=== PATIENT | female | born 1950 | race Caucasian/White ===

== ENCOUNTER → 2017-10-17 11:51 | Outpatient (CLI) | payer MEDICARE, SELFPAY ==
[2017-10-17 12:49] LABS: AST(SGOT) 30 U/L (15-37); Alanine Aminotransfer ALT/SGPT 36 U/L (13-56); Albumin, Serum 4.1 g/dL (3.2-5.0); Alkaline Phosphatase 72 U/L (45-117); Anion Gap 7 (5-15); BUN 18 mg/dL (7-18); Calcium,Total 9.3 mg/dL (8.5-10.1); Chloride 106 mmol/L (98-107); Cholesterol 155 mg/dL (200); Creatinine, Serum 0.78 mg/dL (0.55-1.02); EST Glomerular Filtration Rate 78 mL/min (>60); Est Glom Filt Rate - Afr Amer 94 mL/min (>60); Globulin 4.1 g/dL (2.2-4.2); Glucose 90 mg/dL (74-106); High Density Lipoprotein 36 mg/dL; Potassium 3.8 mmol/L (3.5-5.1); Protein, Total 8.2 g/dL (6.4-8.2); Sodium Level 138 mmol/L (136-145); Thyroid Stim Hormone (TSH) 7.66 uIU/mL (0.358-3.74); Triglycerides 121 mg/dL; Very Low Density Lipoprotein 24 mg/dL (5-40)
[2017-10-17 12:54] LABS: BNP,B-Type NATRIURETIC PEPTIDE 9.6 pg/mL (0-100)
== END ==
PROVIDERS: Visit Provider Family Medicine
DX: E03.9 Hypothyroidism, unspecified (principal); R06.02 Shortness of breath; E78.5 Hyperlipidemia, unspecified; R31.29 Other microscopic hematuria
CPT/HCPCS: 80053; 80061; 83880; 84443

== ENCOUNTER → 2017-10-18 10:59 | Outpatient (CLI) | payer MEDICARE, SELFPAY ==
[2017-10-18 11:01] LABS: Mucous, Urine 0 SEEN /hpf (<or=2+); Squamous Epithelial Cells - UA 0 SEEN /hpf (5-10); White Blood Cells 0 SEEN /hpf (0-5)
[2017-10-18 11:06] LABS: Color, Urine Yellow (Yellow); Glucose, Dipstick Normal (Normal); Ketone-Dipstick Negative (Negative); Leukocyte Esterase-Dipstick Negative /ul (Negative); Nitrite-Dipstick Negative (Negative); Occult Blood-Urine 50 /ul (Negative); Protein-Dipstick Negative (Negative); Specific Gravity, Urine 1.025 (1.002-1.030); Urine Bilirubin Dipstick Negative (Negative); Urine Clarity Cloudy (Clear); Urine Urobilinogen Normal (Normal)
[2017-10-18 11:12] LABS: Amorphous Sediment 2+; Bacteria 2+ /hpf (None Seen); Red Blood Cells-Urine 0-5 SEEN /hpf (0-5)
== END ==
PROVIDERS: Family Provider Family Medicine; PCP Family Medicine; Visit Provider Family Medicine
DX: R31.29 Other microscopic hematuria (principal)
CPT/HCPCS: 81001

== ENCOUNTER 2018-01-07 10:49 | Emergency (ER) | payer MEDICARE, SELFPAY ==
[2018-01-07 10:50] VITALS: BP 151/93; PULSE 81; RESP 16; TEMP 36.5; O2SAT 98; BMI 25.5
--- NOTE | 2018-01-07 10:55 | EKG12_ITS ---
Test Reason : GI BLEED Blood Pressure : / mmHG Vent. Rate : 069 BPM Atrial Rate : 069 BPM P-R Int : 140 ms QRS Dur : 072 ms QT Int : 418 ms P-R-T Axes : 042 -15 045 degrees QTc Int : 447 ms Normal sinus rhythm with sinus arrhythmia Normal ECG Confirmed by JACOBY HARTLEY, LUIS ([id number]), field map editor TAYLOR MANSFIELD ([id number]) on 01/09/2018 1:32:03 PM Referred By: Mor Medrano Confirmed By:LUIS DOZIER MD
--- NOTE | 2018-01-07 11:19 | ED.DCSUM_ITS ---
- ER Visit Summary Date of Service: 01/07/18 Chief Complaint: [] Diarrhea bloody stool this morning History of Present Illness: The patient is a 67 F [] reports that basically she came home from [place] she had a URI she has been taking allergy medicine that is improved last night she noticed copious diarrhea but seemed dark and then this morning it seemed bloody she had abdominal cramps she went to her doctor's office and she came in for evaluation, she has had no vomiting no fever no exposure to tainted food she frequently travels to [place] she stayed with family she was not exposed in the could have made her L she has not been in antibiotics, she has had colonoscopies recently that showed nothing acute she has no history of GI bleeding she does complain of crampy pain to the left lower quadrant she has no history of diverticulitis Physical Examination: [] Is are within normal range she is resting comforting the bed complaining of pain to the left lower abdomen head neck chest unremarkable the abdomen is soft there is a vague pain to the left lower abdomen rectal exam shows runny stool in the vault is red, upper lower extremities and the rest of her exams unremarkable she is hemodynamically stable Test Results: [] Emergency Department Course and Treatment: [] CT labs IV fluids stool cultures The patient received IV fluids she has had no further diarrheal bowel movements while she has been in the emergency department she is feeling fine, her CT shows nothing acute her labs are generally unremarkable stool culture C. difficile were sent, I discussed inpatient versus outpatient management with her she states she feels fine she wants to go home I spoke with Dr. Salter her attending physician given that she was recently in [place] he asked that she be started on Cipro they will check the stool culture she will follow-up with office return for any change in symptoms and again the patient declines admission prefers outpatient management but will return if symptoms change Treatment Plan: [] Disposition: [] Home stable Impression: [] Bloody diarrhea This note was generated with [employer] dictation software. It may contain incorrect words, spelling, and punctuation that were not noted in review of the chart prior to signing ED Disposition - Plan for ED Patient: Chief Complaint: GI Bleed Referrals: Dillon Salter MD [Primary Care Provider] -
--- NOTE | 2018-01-07 11:19 | CT_ITS ---
STUDY: CT ABDOMEN AND PELVIS WITHOUT CONTRAST REASON FOR EXAM: Female, 67 years old. Abdominal pain and cramping. RADIATION DOSAGE (If Supplied By Facility): CTDIvol = ( 6.11 ) mGy, DLP = ( 308.50 ) mGycm TECHNIQUE: Transaxial images were obtained from the dome of the diaphragm to the symphysis pubis without oral contrast, and without intravenous contrast. Sagittal and coronal images were reconstructed. Individualized dose optimization techniques were used for this CT. COMPARISON: None. FINDINGS: The visualized lung bases are unremarkable. The visualized portions of the heart are within normal limits. There is diffuse fatty infiltration of the liver. No focal lesion is definitely identified. Normal gallbladder and extrahepatic biliary system. Normal spleen. Normal pancreas. Normal bilateral adrenal glands. Normal right kidney. There is prominence of the right renal pelvis which could be due to parapelvic cysts unchanged since the prior examination. There is no demonstrated ureteral stones. Normal visualized stomach. There are nonspecific fluid-filled small bowel loops. There are artifacts in the upper pelvic lesion adjacent to distal small bowel loop. There is no evidence of small bowel obstruction. There is fecal retention. There is mild diverticulosis of the sigmoid colon but there is no evidence of acute diverticulitis. The appendix is visualized and appears normal. There is diffuse atherosclerotic calcification of the abdominal aorta, without a demonstrated aneurysm. Normal inferior vena cava. Normal retroperitoneum. Normal urinary bladder. Normal abdominal wall. There is no demonstrated acute osseous changes. CT/Abdomen/Pelvis without Cont IMPRESSION: Fatty infiltration of the liver. No demonstrated acute process. Electronically Signed: Jesse Rodriguez MD at 12:13 EDT Tel , Service support ,
[2018-01-07] MEDS: 0.9% Normal Saline 1,000 ML 999 ML IV (11:26)
[2018-01-07] MEDS: 0.9% Normal Saline 1,000 ML 125 ML IV (11:26)
[2018-01-07 11:27] VITALS: BP 153/68; PULSE 70; RESP 18; O2SAT 96
[2018-01-07 11:35] LABS: Absolute Lymphocyte Count 2.24 X10^3/ul (0.83-4.51); Absolute Neutrophil Count 8.5 X10^3/uL (2.0-7.7); Basophil# 0.02 X10^3/uL; Basophil% 0.2 % (0-1); Eosinophil# 0.26 X10^3/uL; Eosinophils% 2.2 % (0-5); Hematocrit 45.2 % (37-47); Lymphocyte # 2.24 X10^3/ul (4.0); Lymphocyte % 18.9 % (19-41); Mean Corp Hgb Conc 33.2 g/gl (32-36); Mean Corpuscular Hgb 29.6 pg (27.0-32.0); Mean Corpuscular Volume 89.2 fL (81-99); Monocyte# 0.86 X10^3/uL; Monocyte% 7.3 % (0-10); Neutrophil # 8.46 X10^3/uL (2.7-7.7); Neutrophil % 71.2 % (47-70); Platelet Count 251 K/mm3 (150-450); RBC Distribution Width CV 12.1 % (11.6-14.6); RBC Distribution Width SD 38.5 fl (35.1-43.9); Red Blood Count 5.07 M/mm3 (4.2-5.4); White Blood Count 11.9 K/mm3 (4.4-11.0)
[2018-01-07 11:36] LABS: POSITIVE COUNT NO; POSITIVE DIFFERENTIAL NO; POSITIVE MORPHOLOGY NO
[2018-01-07 11:42] LABS: International Normalized Ratio 0.9; Prothrombin Time (Protime)PT. 12.5 SECONDS (11.7-14.9)
[2018-01-07 11:53] LABS: AST(SGOT) 28 U/L (15-37); Alanine Aminotransfer ALT/SGPT 38 U/L (13-56); Alkaline Phosphatase 84 U/L (45-117); Anion Gap 5 (5-15); BUN 16 mg/dL (7-18); BUN/Creat Ratio 21.8 RATIO (10-20); Bilirubin, Direct 0.11 mg/dL (0.00-0.30); Calcium,Total 9.1 mg/dL (8.5-10.1); Chloride 105 mmol/L (98-107); Creatinine, Serum 0.73 mg/dL (0.55-1.02); EST Glomerular Filtration Rate 84 mL/min (>60); Est Glom Filt Rate - Afr Amer 102 mL/min (>60); Estimated Creatinine Clearance 43.77 ml/min; Globulin 4.6 g/dL (2.2-4.2); Glucose 96 mg/dL (74-106); Lipase 91 U/L (73-393); Potassium 3.7 mmol/L (3.5-5.1); Protein, Total 8.6 g/dL (6.4-8.2); Sodium Level 139 mmol/L (136-145)
--- NOTE | 2018-01-07 12:59 | ED.DEP ---
ED Disposition - Plan for ED Patient: Chief Complaint: GI Bleed Instructions: ED Hematochezia Stable Prescriptions: Ciprofloxacin [Cipro] 500 mg PO BID #14 tab Referrals: Dillon Salter MD [Primary Care Provider] -
[2018-01-07] MEDS: Ciprofloxacin 500 MG Tablet PO (13:30)
[2018-01-07 13:31] VITALS: BP 134/84; PULSE 62; RESP 16; O2SAT 95
--- NOTE | 2018-01-07 13:35 | ED.RN ---
called lab to verify they have enough stool for specimen and they do not. will notify
== END 2018-01-07 13:41 | disposition home or self-care (01) ==
PROVIDERS: Emergency Provider Emergency Medicine; Family Provider Family Medicine; PCP Family Medicine
DX: R19.7 Diarrhea, unspecified (principal); K92.1 Melena; R10.32 Left lower quadrant pain; E78.00 Pure hypercholesterolemia, unspecified; Z79.82 Long term (current) use of aspirin; Z79.899 Other long term (current) drug therapy
CPT/HCPCS: 74176; 80048; 80076; 82274; 83690; 84484; 85025; 85610; 87506; 93005; 96360; 96361; 99284; J7030; J2405

== ENCOUNTER → 2018-09-05 15:26 | Outpatient (CLI) | payer MEDICARE, SELFPAY ==
[2018-09-05 16:40] LABS: AST(SGOT) 31 U/L (15-37); Alanine Aminotransfer ALT/SGPT 54 U/L (13-56); Alkaline Phosphatase 67 U/L (45-117); Bilirubin, Direct 0.07 mg/dL (0.00-0.30); Globulin 3.6 g/dL (2.2-4.2); Protein, Total 7.6 g/dL (6.4-8.2)
[2018-09-05 16:47] LABS: PTHIN 36.6 pg/mL (18.4-80.1)
[2018-09-07 16:08] LABS: HEPATITIS B SURFACE AG Negative (Negative); Hepatitis A IgM Antibody Negative (Negative); Hepatitis B Core AB IgM Negative (Negative)
[2018-09-08 12:30] LABS: Hep C Antibodies <0.1 s/co ratio (0.0-0.9)
== END ==
PROVIDERS: Family Provider Family Medicine; PCP Family Medicine; Referring Provider Family Medicine; Visit Provider Family Medicine
DX: E83.52 Hypercalcemia (principal); R74.8 Abnormal levels of other serum enzymes
CPT/HCPCS: 80074; 80076; 82330; 83970

== ENCOUNTER → 2019-04-13 16:08 | Outpatient (CLI) | payer MEDICARE, SELFPAY ==
--- NOTE | 2019-04-13 16:13 | VDLE_ITS ---
Reason For Study: RLE pain RIGHT LEFT GSV is normal. CFV is compressible, spontaneous, phasic, CFV is compressible, spontaneous, phasic, competent, and demonstrates normal competent and demonstrates normal augmentation. augmentation. FV is compressible, spontaneous, phasic, competent and demonstrates normal augmentation. POP V is compressible, spontaneous, phasic, competent and demonstrates normal augmentation. T/P Trunk is compressible. PTV is compressible. RT PerV is compressible. Procedure Exam performed in department. The exam was diagnostic. A preliminary report was called and/or faxed to Dr. Salter office @ 4:35 pm. Interpretation Summary There is no evidence of right lower extremity deep vein thrombosis. Right great saphenous vein appears patent and compressible segmentally. Patent and compressible left great saphenous vein Ordering Physician: Dillon Salter Referring Physician: Dillon Salter Performed By: Dede Cooper RDCS, RVT
== END ==
PROVIDERS: Family Provider Family Medicine; PCP Family Medicine; Referring Provider Family Medicine; Visit Provider Family Medicine
DX: M79.604 Pain in right leg (principal)
CPT/HCPCS: 93971

== ENCOUNTER → 2019-05-10 08:40 | Outpatient (CLI) | payer MEDICARE, SELFPAY ==
--- NOTE | 2019-05-10 10:56 | NEURO ---
NCS and/or EMG Patient Report HPI: Patient is a 68-year-old female who presented with a burning sensation and numbness in her skin and deep into muscle on her frontal lateral thigh of right leg which is been going on for a year. patient does not have any injury to her leg or low back, does not have any back pain or radiating pain down the leg and does not have a history of diabetes. Patient occasionally sleeps on the right side. Patient does not wear tight undergarments or tight belts. No history of weight gain or weight loss or fever or any other medical symptoms at this time. Physical Exam: Decreased sensation to light touch over a patch of skin in right lateral frontal thigh on the lower aspect. No any other sensory deficit in the right or left lower extremity. Tinel sign not positive at anterosuperior iliac spine and no tenderness along inguinal ligament. Findings: 1.There is a evidence of prolongation of distal latency of the right sural sensory nerve response. 2.There is also prolongation of distal latencies of the right lateral and left lateral femoral cutaneous nerve of thigh. 3.Normal nerve conduction studies of right common peroneal and right tibial nerve motor nerve conduction studies. 4. Normal needle examination of right lower extremity. Impression: 1.Findings are suggestive of the meralgia paresthetica on both side, more on the right than the left but patient is symptomatic on the right side and asymptomatic on the left side. 2. 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 Recommendation: 1. Patient recommended to avoid sleeping on the right side and avoid wearing tight undergarments and tight belts. 2. Patient may need MRI of the lumbar spine and CT scan of abdomen and pelvis if symptoms continues or get worse in the next few months.
== END ==
PROVIDERS: Family Provider Family Medicine; PCP Family Medicine; Referring Provider Family Medicine; Visit Provider Family Medicine
DX: M79.604 Pain in right leg (principal)
CPT/HCPCS: 95886; 95910

== ENCOUNTER → 2019-11-02 | Outpatient (CLI) | payer MEDICARE, SELFPAY ==
[2019-11-02 11:09] LABS: Cholesterol 147 mg/dL (200); High Density Lipoprotein 34 mg/dL; Thyroid Stim Hormone (TSH) 1.19 uIU/mL (0.358-3.74); Triglycerides 142 mg/dL; Very Low Density Lipoprotein 28 mg/dL (5-40)
== END | disposition home or self-care (01) ==
LOC: LABSPEC 10:31
PROVIDERS: PCP Family Medicine; Referring Provider Family Medicine; Visit Provider Family Medicine
DX: E03.9 Hypothyroidism, unspecified (principal)
CPT/HCPCS: 80061; 84443

== ENCOUNTER 2019-12-17 13:46 | Observation (INO) | payer MEDICARE, SELFPAY ==
[2019-12-17] VITALS (7 sets, daily range): BP systolic 119–174; BP diastolic 72–102; PULSE 57–89; RESP 15–18; TEMP 36.8; O2SAT 94–97; BMI 25.2; BMI 25.1
--- NOTE | 2019-12-17 14:15 | CT_ITS ---
STUDY: CTA HEAD AND NECK WITH CONTRAST REASON FOR EXAM: Female, 69 years old. TINGLING IN RT CHEEK-2 EPISODES RADIATION DOSAGE (If Supplied By Facility): CTDIvol = ( 26.52 ) mGy, DLP = ( 1384.40 ) mGycm TECHNIQUE: CT angiography was performed with a multi-detector CT scanner. Data acquisition was obtained from the skull base through the vertex following intravenous administration of 100 CC ISOVUE 370. MIP images were reconstructed from the axial data set. Post-processing of the angiographic images was performed, with multiplanar reformation and 3D reconstruction. Individualized dose optimization techniques were used for this CT. COMPARISON: CT of the brain June 22, 2012. FINDINGS: Normal bilateral petrous carotid arteries. Normal right cavernous carotid artery with a normal supraclinoid bifurcation. Normal left cavernous carotid artery with a normal supraclinoid bifurcation. Normal right A1 segments of the anterior cerebral artery. Normal left A1 segments of the anterior cerebral artery. Anterior communicating artery not visualized consistent with normal variant). Normal bilateral A2 segments of the anterior cerebral arteries. Normal right M1 and M2 segments of the middle cerebral arteries, with a normal M1 bifurcation. Normal left M1 and M2 segments of the middle cerebral arteries, with a normal M1 bifurcation. Posterior communicating arteries are not visualized consistent with normal variant). Normal bilateral vertebral arteries. Normal basilar artery with a normal basilar bifurcation. The visualized bilateral superior cerebellar (SCA) arteries are normal. Normal bilateral P1, P2 and visualized P3 segments of the posterior cerebral arteries. There is no demonstrated aneurysm of the [place]. There is no demonstrated abnormality of the visualized brain. AORTIC ARCH: Normal visualized aortic arch. Normal origins of the brachiocephalic, left common carotid, and left subclavian arteries. RIGHT CAROTID ARTERIES: Normal right common carotid artery (CCA). Normal right common carotid bulb. Normal origin of the right internal carotid (ICA) artery without a hemodynamically significant stenosis. Normal visualized cervical portion of the right internal carotid artery. Normal origin of the right external carotid artery (ECA). LEFT CAROTID ARTERIES: Normal left common carotid artery (CCA). Normal left common carotid bulb. Normal origin of the left internal carotid (ICA) artery without a hemodynamically significant stenosis. Normal visualized cervical portion of the left internal carotid artery. Normal origin of the left external carotid artery (ECA). VERTEBRAL ARTERIES: Left vertebral is normal in caliber. There is mild narrowing of the distal right vertebral. CT/CTA Head AND Neck W/ Contrast IMPRESSION: Normal CTA Head and neck with contrast. Electronically Signed: Kennedy Frias MD at 16:47 EDT , Service support ,
--- NOTE | 2019-12-17 14:15 | EKG12_ITS ---
Test Reason : NUMBNESS Blood Pressure : / mmHG Vent. Rate : 062 BPM Atrial Rate : 062 BPM P-R Int : 132 ms QRS Dur : 068 ms QT Int : 416 ms P-R-T Axes : 052 -15 041 degrees QTc Int : 422 ms Normal sinus rhythm Normal ECG Confirmed by JACOBY HARTLEY, LUIS ([id number]), videotape editor SKYLAR SAMPSON ([id number]) on 12/19/2019 1:14:17 PM Referred By: RHONDA Confirmed By:LUIS DOZIER MD
[2019-12-17 15:36] LABS: Absolute Lymphocyte Count 2.11 X10^3/uL (0.83-4.51); Absolute Neutrophil Count 4.3 X10^3/uL (2.0-7.7); Basophil# 0.04 X10^3/uL; Basophil% 0.5 % (0-1); Eosinophil# 0.13 X10^3/uL; Eosinophils% 1.8 % (0-5); Hematocrit 45.5 % (37-47); Hemoglobin 14.8 g/dL (12.0-15.0); Lymphocyte # 2.11 X10^3/ul (4.0); Lymphocyte % 28.6 % (19-41); Mean Corp Hgb Conc 32.5 g/dL (32-36); Mean Corpuscular Hgb 29.2 pg (27.0-32.0); Mean Corpuscular Volume 89.9 fL (81-99); Mean Platelet Vol. 12.3 fl (6.2-12.0); Monocyte# 0.77 X10^3/uL; Monocyte% 10.4 % (0-10); NRBC Flagged by Analyzer 0 % (0-5); Neutrophil % 58.3 % (47-70); Platelet Count 244 K/mm3 (150-450); RBC Distribution Width CV 11.9 % (11.6-14.6); RBC Distribution Width SD 38.7 fl (35.1-43.9); Red Blood Count 5.06 M/mm3 (4.2-5.4); White Blood Count 7.4 K/mm3 (4.4-11.0)
[2019-12-17 15:46] LABS: Anion Gap 6 (5-15); BUN 17 mg/dL (7-18); BUN/Creat Ratio 23.3 RATIO (10-20); Calcium,Total 9.5 mg/dL (8.5-10.1); Chloride 102 mmol/L (98-107); Creatinine, Serum 0.73 mg/dL (0.55-1.02); EST Glomerular Filtration Rate 84 mL/min (>60); Est Glom Filt Rate - Afr Amer 102 mL/min (>60); Estimated Creatinine Clearance 42.59 ml/min; Glucose 77 mg/dL (74-106); Potassium 3.8 mmol/L (3.5-5.1); Sodium Level 137 mmol/L (136-145)
--- NOTE | 2019-12-17 16:36 | ED.DCSUM_ITS ---
- ER Visit Summary Date of Service: 12/17/19 Chief Complaint: [Paresthesias] History of Present Illness: The patient is a 69 F [resents to the emergency department complaint of paresthesias to the right cheek that started 5 days ago initially. Patient states the symptoms lasted about 10 seconds and then re solved. Patient states that yesterday she had another episode while walking and talking to a friend developed sudden onset of paresthesias to the right side of her face that lasted about 10 seconds or so then resolved. She denies any focal weakness otherwise. She denies any speech difficulties. She denies any vision changes. She is currently symptom-free. Has history of high cholesterol and history of hypothyroidism.] Physical Examination: [HEENT-PERRLA, EOMI. Cranial nerves II through XII grossly intact. TMs clear. Mucous membranes moist. No adenopathy. Cardiovascular-regular rate and rhythm without murmur or ectopy Lungs-clear to auscultation, chest wall stable without crepitus or subcu emphysema Abdomen-normoactive bowel sounds, soft, nontender, no rebound or rigidity, no peritoneal signs. Neuro poik-[id number] and heel shaw testing within normal limits, negative Romberg, negative for drift, fundi benign Extremities-intact ?4, normal range of motion, normal pulses, atraumatic] Test Results: EKG obtained arrival shows sinus rhythm with a ventricular rate of 62 bpm with no acute segment changes. CBC with differential is normal. Chemistries unremarkable. CTA of the head and neck ordered and pending. [] Emergency Department Course and Treatment: [Patient placed on wet end operator. Patient case discussed with hospitalist who will evaluate patient for admission after CTA results returned. ] Treatment Plan: [Patient turned over to evening physician awaiting CTA results of head neck and final disposition] Disposition: [Pending] Impression: [TIA] This note was generated with H2020ation software. It may contain incorrect words, spelling, and punctuation that were not noted in review of the chart prior to signing ED Disposition - Plan for ED Patient: Referrals: Dillon Salter MD [Primary Care Provider] -
--- NOTE | 2019-12-17 17:13 | NURSING ---
[facility]
--- NOTE | 2019-12-17 17:16 | HP.PCM_ITS ---
<Zbigniew Fowler - Last Filed: 12/17/19 17:27> Problem List (1) CVA (cerebral vascular accident) Status: Acute (2) Dyslipidemia Status: Chronic (3) Hypothyroidism Status: Chronic History of Present Illness Date of Admission: 12/17/19 Chief Complaint: parasthesias The patient is a 69 year old F with pmhx of HLD and who presents to the ER with c/o parasthesias. The patient was with friends about 5 days ago and noted that she had a tingling sensation on the right side of her face inferolateral to the eye. This sensation occurred for <1 minute and went away. It came back yesterday and went away after about 10 secs. She called her PCP to get seen today who instructed her to come to the ER. Today she has had no symptoms. She had no other associated symptoms. She denies MARTIN, LH, dizziness, parasthesias elsewhere, focal weakness, ataxia, swallowing or speech difficulties. She had a CTA head / neck in the ER that was negative. EKG NSR. She has no recent infections. She has no recent med changes. She feels in her normal state of health. [] Past Medical History Past Medical History (Chronic Problems): Chronic Problems Numbness (Chronic) Hypothyroidism (Chronic) Dyslipidemia (Chronic) Atypical chest pain (Chronic) Allergies Sulfa (Sulfonamide Antibiotics) Allergy (Verified 12/17/19 13:50) Unknown Home Medications: Ambulatory Orders Medication Instructions Recorded Aspirin [Aspirin, Baby] 81 mg PO DAILY@0800 01/07/18 Atorvastatin Calcium [Lipitor] 10 mg PO QHS 01/07/18 Levothyroxine [Synthroid] 75 mcg PO DAILY 01/07/18 Surgical History: tonsillectomy Psychiatric History: No pertinent psych hx PLANNING CONSULTANT History: No pertinent PLANNING CONSULTANT history Lives: Spouse/ Significant Other Smoking Status: Never smoker Tobacco Use: Non-smoker Alcohol: Occasional Drugs: None - *Family History Maternal History Items: Unknown - adopted Paternal History Items: Unknown - adopted Review of Systems Constitutional: Denies: Chills, Fever, Weight Change HEENT: Denies: Head Aches, Sinus Congestion, Sinus Drainage Cardiovascular: Denies: Chest Pain, Palpitations Respiratory: Denies: Cough, Shortness of breath at rest, Sputum production Gastrointestinal: Denies: Abdominal Pain, Nausea, Vomiting Genitourinary: Denies: Dysuria Musculoskeletal: Denies: Joint Pain, Joint Tenderness Skin: Denies: Rash, Wounds Neurological: Reports: Tingling. Denies: Focal weakness, Numbness Psychiatric: Denies: Anxiety, Depression, Homicidal Ideations, Suicidal Ideations Hematologic/ Lymphatic: Denies: Easy Bruising, Easy Bleeding VTE Information - Inpt Only VTE Present on Admission: No VTE Mechan Device Prophylaxis: None VTE Pharm Prophylaxis ordered?: Yes Patient Problems: Active and Suspected Problems CVA (cerebral vascular accident) (Acute) - Physical Exam Vitals/I&O's: Vital Signs Temp Pulse Resp BP Pulse Ox 98.2 F 68 18 174/93 H 94 12/17/19 13:48 12/17/19 17:04 12/17/19 17:04 12/17/19 17:04 12/17/19 17:04 Oxygen Delivery Method Room Air Weight: 138 lb 3.677 oz Body Mass Index (BMI) 25.2 General: Alert, Oriented x3, Cooperative HEENT: Atraumatic, PERRLA, EOMI, Normocephalic Neck: Supple, No JVD, Negative Carotid Bruits Lungs: Clear to auscultation, Normal air movement Cardiovascular: Regular rate, No murmurs Abdomen: Bowel Sounds Present, Soft, Non Tender Extremities: No edema, Capillary Refill Less than 3 Seconds Skin: No rashes, No breakdown Musculoskeletal: No Tenderness to Palpation of Joints or Extremities Neurological: Cranial nerves II-XII grossly intact Psych/Mental Status: Normal Affect, Appropriate, Alert and oriented to time, place, person, mood and affect Laboratory Results 12/17/19 15:15: WBC 7.4, RBC 5.06, Hgb 14.8, Hct 45.5, MCV 89.9, MCH 29.2, MCHC 32.5, RDW Std Deviation 38.7, RDW Coeff of [place] 11.9, Plt Count 244, MPV 12.3 H, Immature Gran % (Auto) 0.400, Neut % (Auto) 58.3, Lymph % (Auto) 28.6, [place] % (Auto) 10.4 H, Eos % (Auto) 1.8, Baso % (Auto) 0.5, Absolute Neuts (auto) 4.3, Absolute Lymphs (auto) 2.11, Nucleated RBC % 0 12/17/19 15:15: Sodium 137, Potassium 3.8, Chloride 102, Carbon Dioxide 29.0, Anion Gap 6, BUN 17, Creatinine 0.73, Estim Creat Clear Calc 42.59, Est GFR (MDRD) Af Amer 102, Est GFR (MDRD) Non-Af 84, BUN/Creatinine Ratio 23.3 H, Glucose 77, Calcium 9.5 Assessment/Plan All Active Problems CVA (cerebral vascular accident) (Acute) 1. Parasthesias - r/o CVA. CTA head and neck neg. hx hld. continue aspirin ( she does not know why she takes this), increase statin to 80. Obtain MRI. Echo in AM. Check b12, tsh. Check NIHSS. Maintain on tele. EKG NSR. Labs/vitals unremarkable. 2. Hypothyroidism - check tsh continue synthroid. 3. HLD - as above inc statin and check FLP in AM. DVT ppx: lovenox This patient was seen by Zbigniew Fowler PA-C under the supervision of Doctor Stewart. <Pati William - Last Filed: 12/17/19 18:09> History of Present Illness The patient is a 69 year old F [] Past Medical History Allergies Sulfa (Sulfonamide Antibiotics) Allergy (Verified 12/17/19 13:50) Unknown - Physical Exam Vitals/I&O's: Vital Signs Temp Pulse Resp BP Pulse Ox 98.2 F 68 18 174/93 H 94 12/17/19 13:48 12/17/19 17:04 12/17/19 17:04 12/17/19 17:04 12/17/19 17:04 Oxygen Delivery Method Room Air Weight: 138 lb 3.677 oz Body Mass Index (BMI) 25.2 Laboratory Results 12/17/19 15:15: WBC 7.4, RBC 5.06, Hgb 14.8, Hct 45.5, MCV 89.9, MCH 29.2, MCHC 32.5, RDW Std Deviation 38.7, RDW Coeff of [place] 11.9, Plt Count 244, MPV 12.3 H, Immature Gran % (Auto) 0.400, Neut % (Auto) 58.3, Lymph % (Auto) 28.6, [place] % (Auto) 10.4 H, Eos % (Auto) 1.8, Baso % (Auto) 0.5, Absolute Neuts (auto) 4.3, Absolute Lymphs (auto) 2.11, Nucleated RBC % 0 12/17/19 15:15: Sodium 137, Potassium 3.8, Chloride 102, Carbon Dioxide 29.0, Anion Gap 6, BUN 17, Creatinine 0.73, Estim Creat Clear Calc 42.59, Est GFR (MDRD) Af Amer 102, Est GFR (MDRD) Non-Af 84, BUN/Creatinine Ratio 23.3 H, Glucose 77, Calcium 9.5 Assessment/Plan Patient seen by Zbigniew Fowler PA-C under my supervision Patient is a 69-year-old female with a past medical history of hyperlipidemia was admitted through the ED on 12/17/2019 with a complaint of paresthesia over the right side of her face. Symptoms started 1 day prior to admission and resolved. However it recurred again and subsequently resolved. She therefore decided to call his PCP illness advised to come into the ED. She has not had symptoms like this before and denies any fever, chills, headache, blurred vision, chest pain, numbness or tingling or any focal weakness. Review of symptoms otherwise negative. In the ED, vitals were significant for blood pressure 174/93 was otherwise within normal limits. She was saturating 94% on room air. Chemistry essentially unremarkable and CBC was also unremarkable. CTA of the head and neck with contrast was negative. CT of the brain was not done. She has been admitted to be managed for TIA. O/E: Vital Signs Temp Pulse Resp BP Pulse Ox 98.2 F 68 18 174/93 H 94 12/17/19 13:48 12/17/19 17:04 12/17/19 17:04 12/17/19 17:04 12/17/19 17:04 General: Alert, Oriented x3, Cooperative HEENT: Atraumatic, PERRLA, EOMI, Normocephalic Neck: Supple, No JVD, Negative Carotid Bruits Lungs: Clear to auscultation, Normal air movement Cardiovascular: Regular rate, No murmurs Abdomen: Bowel Sounds Present, Soft, Non Tender Extremities: No edema, Capillary Refill Less than 3 Seconds Skin: No rashes, No breakdown Musculoskeletal: No Tenderness to Palpation of Joints or Extremities Neurological: Cranial nerves II-XII grossly intact, power 5/5 in all extremities, normal tone and reflexes Psych/Mental Status: Normal Affect, Appropriate, Alert and oriented to time, place, person, mood and affect Plan is to admit to PCU with telemetry and manage patient with TIA. CT of the head and neck was negative. Will get 2D echo and CT of the brain. NIH stroke scale was 0. Check TSH and vitamin B12. Of note, EKG showed normal sinus rhythm. For MRI tomorrow. Neurochecks. CODE STATUS: Full code Patient and counseled extensively about different types of CODE STATUS including full code, DNR CCA and DNR CCA. Patient elects to be full code. Total [id number] time 16 minutes. Rest as per Zbigniew Fowler PA-C's notes which I have reviewed and endorsed. OBSV E&M: 65716 Initial observation care L2 Procedures: 15403 Advncd Care Plan 30 Min
[2019-12-17] MEDS: Aspirin 81 MG TAB.CHEW 324 MG PO (17:21)
[2019-12-17 19:16] LABS: Thyroid Stim Hormone (TSH) 0.71 uIU/mL (0.358-3.74)
[2019-12-17 19:55] LABS: Vitamin B12 676 pg/mL (211-911)
[2019-12-17] MEDS: Zolpidem Tartrate 5 MG Tablet PO (22:28)
[2019-12-17] MEDS: Atorvastatin Calcium 80 MG Tablet PO (22:28)
[2019-12-18] VITALS (8 sets, daily range): BP systolic 113–147; BP diastolic 63–78; PULSE 52–85; RESP 16–17; TEMP 36.7–37.3; O2SAT 95–97; BMI 25.1
[2019-12-18] MEDS: Levothyroxine 75 MCG Tablet PO (04:54)
--- NOTE | 2019-12-18 05:55 | MRI_ITS ---
STUDY: MRI BRAIN WITHOUT CONTRAST REASON FOR EXAM: Female, 69 years old. parathesias, episodes of tingling right face TECHNIQUE: Standardized multiplanar fat and water weighted pulse sequences were obtained. COMPARISON: CT of the brain December 17, 2019 FINDINGS: Normal size of the ventricles and extra-axial spaces for the patient''s age. Solitary tiny punctate white matter lesion in the left parietal lobe without mass effect or restricted diffusion.. Normal bilateral basal ganglia. Normal thalami. There is no extra-axial fluid accumulation. Normal flow voids within the major intracranial circulation suggesting patency by spin echo criteria. Normal sella turcica, pituitary gland, infundibular stalk, optic chiasm and hypothalamus. Normal tectal plate and pineal gland. Normal midbrain, fan and medulla. Normal cerebellum. Normal basal cisterns. Normal bilateral temporal bones. Normal bilateral internal auditory canals. No demonstrated orbital abnormality, within the constraints of a routine brain study. There is polypoid mucosal thickening in the right maxillary sinus and minor thickening of the ethmoid air cells.. Normal calvarium and skull base. Normal visualized soft tissue structures. Normal visualized upper cervical spine. MRI/Brain without Contrast IMPRESSION: Solitary tiny white matter lesion in left parietal lobe of uncertain etiology but likely ischemic changes secondary to small vessel disease in patient of this age. No significant white matter ischemia or evidence for acute infarct. Electronically Signed: Kennedy Frias MD at 16:05 EDT , Service support ,
--- NOTE | 2019-12-18 05:55 | ECHOCS_ITS ---
Reason For Study: TIA Procedure This was a 2D Doppler, Color Flow transthoracic echocardiogram. The study was technically difficult. Contrast injection was performed. Exam performed portable in patient room. Left Ventricle Normal LV size. Left ventricular systolic function is normal. The estimated ejection fraction is 60 %. No evidence for diastolic dysfunction. No regional wall motion abnormalities noted. Right Ventricle Normal RV size. Normal systolic function. Atria Normal left atrium. Normal right atrium. No doppler evidence for ASD. Bubble contrast study negative for right to left interatrial shunt. Mitral Valve There is no mitral annular calcification. Mild diffuse mitral valve thickening. Trivial mitral valve insufficiency. Tricuspid Valve Normal tricuspid valve. Trivial tricuspid valve insufficiency. Unable to estimate RV systolic pressure/pulmonary artery pressure due to technically difficult study. Aortic Valve Trisinus/trileaflet aortic valve. Normal aortic valve. Pulmonic Valve The pulmonic valve is not well visualized. Trivial eccentric pulmonic valve insufficiency. Great Vessels Normal sized aortic root. Pericardium/Pleural No pericardial effusion. Medication Diluted definity 2ml given slow IV push to enhance endocardial definition. Performed a rapid injection of agitated mix of 9 cc saline and 1cc air to assess for atrial septal defect. MMode/2D Measurements & Calculations LVIDd: 3.7 cm IVSd: 0.90 cm Ao root diam: 3.1 cm LVIDs: 2.3 cm LVPWd: 0.86 cm RVDd: 2.9 cm FS: 37.8 % LAV(MOD-bp): 22.6 ml LVAd ap4: 22.4 cm2 SV(MOD-sp4): 36.8 ml LAV(MOD-bp) Indexed: 13.9 ml/m2 EDV(MOD-sp4): 59.8 ml LAV(MOD-sp2): 25.9 ml EDV(sp4-el): 63.1 ml LAV(MOD-sp4): 19.3 ml LVAs ap4: 12.3 cm2 ESV(MOD-sp4): 23.0 ml ESV(sp4-el): 24.1 ml EF(MOD-sp4): 61.6 % EF(sp4-el): 61.7 % SV(sp4-el): 38.9 ml LA A4 area: 9.8 cm2 LA dimension(2D): 2.9 cm RA A4 area: 9.6 cm2 Time Measurements MV dec time: 0.34 sec Doppler Measurements & Calculations MV E max rush: 63.8 cm/sec Lat Peak E' Rush: 12.9 cm/sec Med Peak E' Rush: 8.4 cm/sec MV A max rush: 75.5 cm/sec E/E' lat: 4.9 E/E' med: 7.6 MV E/A: 0.85 Ao V2 max: 122.4 cm/sec LV V1 max: 95.9 cm/sec PA V2 max: 85.1 cm/sec Ao max P.0 mmHg LV V1 max P.7 mmHg Interpretation Summary The study was technically difficult. Contrast injection was performed. Left ventricular systolic function is normal. The estimated ejection fraction is 60 %. Mild diffuse mitral valve thickening. Trivial mitral valve insufficiency. Trivial tricuspid valve insufficiency. Trivial eccentric pulmonic valve insufficiency. Unable to estimate RV systolic pressure/pulmonary artery pressure due to technically difficult study. No evidence for diastolic dysfunction. Bubble contrast study negative for right to left interatrial shunt. Ordering Physician: Zbigniew Fowler Referring Physician: RENU GAMBLE Performed By: Sabra Lo RDCS
[2019-12-18 06:10] LABS: Cholesterol 144 mg/dL (200); High Density Lipoprotein 34 mg/dL; Triglycerides 126 mg/dL; Very Low Density Lipoprotein 25 mg/dL (5-40)
[2019-12-18] MEDS: Aspirin 81 MG TAB.CHEW PO (09:24)
[2019-12-18] MEDS: LORazepam 2 MG/ML Syringe 0.5 MG IV (12:04)
[2019-12-18] MEDS: 0.9% Saline Lock 10 ML Syringe IV (12:05)
--- NOTE | 2019-12-18 16:03 | DCINST_ITS ---
- Discharge Diagnoses Current Active Problems: Current Active and Chronic Problems CVA (cerebral vascular accident) (Acute) You will use the following diet at home:: Cardiac Your food should be the consistency of: Regular Your liquids should be the consistency of: Regular/Thin Discharge Activity: Return to Normal Activity Allergies/Adverse Reactions: Allergies Sulfa (Sulfonamide Antibiotics) Allergy (Verified 12/17/19 13:50) Unknown Medications to take at Discharge Aspirin [Aspirin, Baby] 81 mg PO DAILY@0800 01/07/18 Levothyroxine [Synthroid] 75 mcg PO DAILY 01/07/18 Atorvastatin Calcium [Lipitor] 80 mg PO QHS #30 tab 12/18/19 The following prescriptions were given: Atorvastatin Calcium [Lipitor] 80 mg PO QHS #30 tab Transmission Status: Pending to [facility]/pharmacy #[id number] Primary Care Physician: Dillon Salter MD [Primary Care Provider] - Please follow up with your Primary Care Physician in: 1-2 weeks Test Results: Test results from this visit will be discussed in further detail at your follow- up appointment, if applicable. Please Follow Up With: Lukas Degroot MD When: 2-3 weeks Proposed Discharge Date: 12/18/19
--- NOTE | 2019-12-18 16:04 | DS.PCM_ITS ---
<Zbigniew Fowler - Last Filed: 12/18/19 16:11> Discharge Date and Diagnosis Date of Admission: 12/17/19 Date of Discharge: 12/18/19 - Primary Discharge Diagnosis Acute Problems: Active Problems TIA right facial parasthesias HLD - Secondary Discharge Diagnosis Chronic Problems: Chronic Problems Numbness (Chronic) Hypothyroidism (Chronic) Dyslipidemia (Chronic) Atypical chest pain (Chronic) Hospital Course and Treatment Imaging Results: IMAGIND Echo: Interpretation Summary The study was technically difficult. Contrast injection was performed. Left ventricular systolic function is normal. The estimated ejection fraction is 60 %. Mild diffuse mitral valve thickening. Trivial mitral valve insufficiency. Trivial tricuspid valve insufficiency. Trivial eccentric pulmonic valve insufficiency. Unable to estimate RV systolic pressure/pulmonary artery pressure due to technically difficult study. No evidence for diastolic dysfunction. Bubble contrast study negative for right to left interatrial shunt. CT/CTA Head AND Neck W/ Contrast IMPRESSION: Normal CTA Head and neck with contrast. Operations: None Procedures: 2-D Echocardiogram Summary of Care Provided: Hospital Course: The patient is a 69 year old F with pmhx of HLD who presented to the ER with c/o right facial parasthesias. About 5 days prior she had a brief <1 minute episode of tingling in the right side of the face. It went away spontaneously. It came back the day prior to presentation but only lasted about 10 seconds that time. The next day she called her PCP who advised coming to the ER. She had a CTA head and neck which was negative. EKG was NSR. She had no symptoms. BP was elevated at 164/102/ She was admitted for stroke workup. She was started on aspirin and statin therapy was maximied. Echo was obtained and was unremarkable results as above no ASD. MRI brain was obtained and showed a small white matter lesion possibly from ischemic changes 2/2 small vessel disease but no evidence of acute infarct. She should discuss this with the neurologist at follow up. The patient was discharged home in stable condition. She will need follow up with her PCP in 1-2 weeks and with Neurology in 2-3 weeks. This patient was seen by Zbigniew Fowler PA-C under the supervision of Dr. Farias. [] - Physical Exam Vitals/I&O's: Vital Signs Temp Pulse Resp BP Pulse Ox 98.7 F 69 16 113/63 97 12/18/19 14:20 12/18/19 15:00 12/18/19 14:20 12/18/19 14:20 12/18/19 14:20 Oxygen Delivery Method Room Air Weight: 137 lb 9.095 oz Body Mass Index (BMI) 25.1 Intake and Output for Last 24 Hours 12/16/19 12/17/19 12/18/19 23:59 23:59 23:59 Intake Total 470 / 470 Balance 470 / 470 General: Alert, Oriented x3, Cooperative HEENT: Atraumatic, PERRLA, EOMI, Normocephalic Neck: Supple, No JVD, Negative Carotid Bruits Lungs: Clear to auscultation, Normal air movement Cardiovascular: Regular rate, No murmurs Abdomen: Bowel Sounds Present, Soft, Non Tender Extremities: No edema, Capillary Refill Less than 3 Seconds Skin: No rashes, No breakdown Musculoskeletal: No Tenderness to Palpation of Joints or Extremities Neurological: Cranial nerves II-XII grossly intact Psych/Mental Status: Normal Affect, Appropriate, Alert and oriented to time, place, person, mood and affect Laboratory Results 12/17/19 15:15: Vitamin B12 676 12/17/19 18:45: Troponin I < 0.015, TSH 0.71 12/18/19 05:32: Triglycerides 126, Cholesterol 144, LDL Cholesterol 85, VLDL Cholesterol 25, HDL Cholesterol 34 L Current Medications Acetaminophen (Tylenol) 650 mg PO Q6H PRN PRN PRN Reason: Pain Score 1-10/10 Aspirin (Aspirin, Baby) 81 mg PO DAILY@0800 [facility] Last Admin: 12/18/19 09:24 Dose: 81 mg Documented by: Atorvastatin Calcium (Lipitor) 80 mg PO QHS [facility] Last Admin: 12/17/19 22:28 Dose: 80 mg Documented by: Hydralazine HCl (Apresoline Iv) 5 mg IV Q30M PRN PRN Reason: to maintain BP goals Labetalol HCl (Trandate) 10 - 20 mg IV Q10M PRN PRN PRN Reason: to maintain BP goals Levothyroxine Sodium (Synthroid) 75 mcg PO DAILY@0600 [facility] Last Admin: 12/18/19 04:54 Dose: 75 mcg Documented by: Ondansetron HCl (Zofran Odt) 4 mg PO Q6H PRN PRN PRN Reason: NAUSEA Sodium Chloride () 10 - 40 ml IV UD PRN PRN Reason: SALINE FLUSH Last Admin: 12/18/19 12:05 Dose: 10 ml Documented by: Zolpidem Tartrate (Ambien (Generic)) 5 mg PO QHS PRN PRN PRN Reason: sleep Last Admin: 12/17/19 22:28 Dose: 5 mg Documented by: Discharge Diet: Low fat/ Low Cholesterol, 2000 mg Sodium Diet Discharge Activity: Return to Normal Activity Home Medications: Medications to take at Discharge Aspirin [Aspirin, Baby] 81 mg PO DAILY@0800 01/07/18 Levothyroxine [Synthroid] 75 mcg PO DAILY 01/07/18 Atorvastatin Calcium [Lipitor] 80 mg PO QHS #30 tab 12/18/19 Following Prescrptions Were Given to Patient: Atorvastatin Calcium [Lipitor] 80 mg PO QHS #30 tab Transmission Status: Received by [facility]pharmacy #[id number] Primary Care Physician: Dillon Salter MD [Primary Care Provider] - Please follow up with your Primary Care Physician in: 1-2 weeks Please Follow Up With: Lukas Degroot MD When: 2-3 weeks Disposition: Home Minutes spent on discharge:: 35 Patient Condition:: Stable Medical Necessity - Tobacco Use Smoking Status: Never smoker Tobacco Use: Non-smoker Meaningful Use Info Meaningful Use Diagnoses (Choose all that apply): None applicable <JarrettKadeem - Last Filed: 12/19/19 11:55> Discharge Date and Diagnosis - Secondary Discharge Diagnosis Chronic Problems: Chronic Problems Numbness (Chronic) Hypothyroidism (Chronic) Dyslipidemia (Chronic) Atypical chest pain (Chronic) Hospital Course and Treatment Summary of Care Provided: This patient was seen in conjunction with Zbigniew SCHAEFER. I have independently interviewed and examined the patient and reviewed pertinent history, examination findings, laboratory and plan of management. I have reviewed the note and agree with the documented findings with the few additional points. In brief, patient is 69-year-old female with history of dyslipidemia was admitted with right-sided facial paresthesia/tingling about 5 days ago for less than 1 minute. Patient denies any previous history of stroke, coronary artery disease or peripheral artery disease. EKG normal sinus rhythm. classroom monitor shows sinus rhythm. Patient was admitted in PCU and had a stroke work-up. MRI brain showed no evidence of acute infarct. It incidentally showed solitary tiny white matter lesion in left parietal lobe of uncertain etiology, probably small vessel disease. Patient was advised to follow-up with neurologist. Fasting profile LDL 85, HDL 34. TSH and vitamin B12 normal. Head and neck CTA shows re ported normal. 2D echo EF 60% with global contrast today negative. Discharge medication reconciliation done. Discharge follow-up instructions completed. Discharge process discussed with the patient and all questions were answered to patient's satisfaction. Total time spent, exact 35 minutes on discharge meds reconciliation, examination, coordination of care with nurses and ancillary staff, review of imaging and blood test and discussion with the patient on follow-up instructions I have discussed my assessment with Zbigniew SCHAEFER and orders have been reviewed. [] Clinical Impression(s) from Imaging Studies Head/Neck CTA 12/17/19 14:15 IMPRESSION: Normal CTA Head and neck with contrast. Brain MRI 12/18/19 05:55 IMPRESSION: Solitary tiny white matter lesion in left parietal lobe of uncertain etiology but likely ischemic changes secondary to small vessel disease in patient of this age. No significant white matter ischemia or evidence for acute infarct. Objective: Patient was admitted with tingling sensation on the right side of the face about 5 days ago. Denies focal weakness, ataxia, dysarthria, language deficit or dysphagia Physical exam General: Alert, Oriented x3, Cooperative HEENT: Atraumatic, PERRLA, EOMI, Normocephalic Oral: No Gingival or Mucosal Lesions/ Ulcerations Neck: Supple, No JVD, Negative Carotid Bruits Lungs: Air entry diminished in bilateral lung bases. No crepitation/rhonchi Cardiovascular: Regular rate, Regular Rhythm, Normal S1, Normal S2, No murmurs Abdomen: Bowel Sounds Present, Soft, Non Tender, Non-Distended : No renal angle tenderness. No suprapubic tenderness. Extremities: No edema, Capillary Refill Less than 3 Seconds Skin: No rashes, No breakdown Musculoskeletal: No Tenderness to Palpation of Joints or Extremities Neurological: Cranial nerves II-XII grossly intact, Deep Tendon Reflexes 2+/4 and Symmetrical, muscle strength 5/5 at major joints, neuro grossly intact. NIH stroke scale 0 Psych/Mental Status: Normal Affect, Appropriate - Physical Exam Vitals/I&O's: Vital Signs Temp Pulse Resp BP Pulse Ox 98.7 F 69 16 113/63 97 12/18/19 14:20 12/18/19 15:00 12/18/19 14:20 12/18/19 14:20 12/18/19 14:20 Oxygen Delivery Method Room Air Weight: 137 lb 9.095 oz Body Mass Index (BMI) 25.1 Intake and Output for Last 24 Hours 12/17/19 12/18/19 12/19/19 23:59 23:59 23:59 Intake Total 470 / 470 Balance 470 / 470 OBSV E&M: 20682 Observation care discharge
== END 2019-12-18 16:03 | disposition home or self-care (01) ==
LOC: ED 14:30 → PCU 17:51
PROVIDERS: Physician Assistant; Admitting Provider Student in an Organized Health Care Education/Training Program; Emergency Provider Emergency Medicine; PCP Family Medicine; Visit Provider Internal Medicine
DX: G45.9 Transient cerebral ischemic attack, unspecified (principal); E03.9 Hypothyroidism, unspecified; Z79.899 Other long term (current) drug therapy; Z79.82 Long term (current) use of aspirin; E78.5 Hyperlipidemia, unspecified; I10 Essential (primary) hypertension
CPT/HCPCS: 70496; 70498; 70551; 80048; 80061; 82607; 84443; 84484; 85025; 93005; 93306; 96374; 97802; 99218; 99284; Q9957; Q9967; A4216; C8929; G0378

== ENCOUNTER → 2020-01-31 12:10 | Outpatient (CLI) | payer MEDICARE, SELFPAY ==
[2019-12-18 15:51] VITALS: BMI 25.1
[2020-01-31 13:41] LABS: Cholesterol 135 mg/dL (200); High Density Lipoprotein 39 mg/dL; Thyroid Stim Hormone (TSH) 0.46 uIU/mL (0.358-3.74); Triglycerides 152 mg/dL; Very Low Density Lipoprotein 30 mg/dL (5-40)
== END ==
PROVIDERS: PCP Family Medicine; Referring Provider Family Medicine; Visit Provider Family Medicine
DX: E03.9 Hypothyroidism, unspecified (principal); Z86.73 Personal history of transient ischemic attack (TIA), and cerebral infarction without residual deficits
CPT/HCPCS: 80061; 84443

== ENCOUNTER 2020-08-07 17:02 | Outpatient (RCR) | payer MEDICARE, SELFPAY ==
[2019-12-18 15:51] VITALS: BMI 25.1
[2020-08-07] MEDS: COVID-19 VACC, MRNA(PFIZER)/PF 30 MCG/0.3 ML SYRINGE IM (14:44)
[2020-08-28] MEDS: COVID-19 VACC, MRNA(PFIZER)/PF 30 MCG/0.3 ML SYRINGE IM (14:14)
== END 2020-11-11 23:59 ==
LOC: IMMUN 17:02
PROVIDERS: PCP Family Medicine; Visit Provider Family Medicine
DX: Z23 Encounter for immunization (principal)
CPT/HCPCS: 0001A; 0002A; 91300

== ENCOUNTER → 2020-08-12 | Outpatient (CLI) | payer MEDICARE, SELFPAY ==
[2019-12-18 15:51] VITALS: BMI 25.1
== END | disposition home or self-care (01) ==
LOC: LABSPEC 17:03
PROVIDERS: PCP Family Medicine; Referring Provider Obstetrics & Gynecology; Visit Provider Obstetrics & Gynecology
DX: R30.0 Dysuria (principal)
CPT/HCPCS: 87086; 87088; 87186

== ENCOUNTER → 2020-09-02 12:08 | Outpatient (CLI) | payer MEDICARE, SELFPAY ==
[2019-12-18 15:51] VITALS: BMI 25.1
[2020-09-02 13:04] LABS: CPK Total, Creatine Kinase 70 U/L (26-192); Cholesterol 140 mg/dL (200); High Density Lipoprotein 32 mg/dL; Triglycerides 156 mg/dL; Very Low Density Lipoprotein 31 mg/dL (5-40)
[2020-09-02 13:06] LABS: Vitamin D,25 Hydroxy 31.8 ng/mL
== END ==
PROVIDERS: PCP Family Medicine; Referring Provider Physician Assistant; Visit Provider Physician Assistant
DX: E78.5 Hyperlipidemia, unspecified (principal); E03.9 Hypothyroidism, unspecified
CPT/HCPCS: 80061; 82306; 82550

== ENCOUNTER → 2021-03-11 | Outpatient (CLI) | payer MEDICARE, SELFPAY ==
[2021-03-11 17:13] LABS: Thyroid Stim Hormone (TSH) 0.68 uIU/mL (0.358-3.74)
== END | disposition home or self-care (01) ==
LOC: LABSPEC 15:37
PROVIDERS: PCP Family Medicine; Referring Provider Family Medicine; Visit Provider Family Medicine
DX: E03.9 Hypothyroidism, unspecified (principal)
CPT/HCPCS: 84443

== ENCOUNTER 2023-02-27 15:13 | Emergency (ER) | payer MEDICARE, SELFPAY ==
[2023-02-27 15:13] VITALS: BP 165/84
[2023-02-27 15:16] VITALS: BP 165/86; PULSE 80; RESP 18; TEMP 36.5; O2SAT 98; BMI 25.7
[2023-02-27 15:56] LABS: Absolute Lymphocyte Count 1.67 X10^3/uL (0.83-4.51); Absolute Neutrophil Count 4.8 X10^3/uL (2.0-7.7); Basophil# 0.04 X10^3/uL; Basophil% 0.6 % (0-1); Eosinophil# 0.11 X10^3/uL; Eosinophils% 1.5 % (0-5); Hematocrit 44.5 % (37-47); Hemoglobin 14.8 g/dL (12.0-15.0); Lymphocyte # 1.67 X10^3/ul (0.83-4.51); Lymphocyte % 23.5 % (19-41); Mean Corp Hgb Conc 33.3 g/dL (32-36); Mean Corpuscular Hgb 29.1 pg (27.0-32.0); Mean Corpuscular Volume 87.6 fL (81-99); Mean Platelet Vol. 12.4 fl (6.2-12.0); Monocyte# 0.51 X10^3/uL; Monocyte% 7.2 % (0-10); NRBC Flagged by Analyzer 0 % (0-5); Neutrophil # 4.78 X10^3/uL (2.7-7.7); Neutrophil % 67.1 % (47-70); Platelet Count 224 K/mm3 (150-450); RBC Distribution Width CV 11.9 % (11.6-14.6); RBC Distribution Width SD 38.3 fl (35.1-43.9); Red Blood Count 5.08 M/mm3 (4.2-5.4); White Blood Count 7.1 K/mm3 (4.4-11.0)
[2023-02-27 16:16] LABS: Anion Gap 7 (5-15); BUN 16 mg/dL (7-18); BUN/Creat Ratio 22.3 RATIO (10-20); Calcium,Total 9.9 mg/dL (8.5-10.1); Chloride 103 mmol/L (98-107); Creatinine, Serum 0.72 mg/dL (0.55-1.02); EST Glomerular Filtration Rate 85 mL/min (>60); Est Glom Filt Rate - Afr Amer 103 mL/min (>60); Estimated Creatinine Clearance 40.81 ml/min; Glucose 102 mg/dL (74-106); Potassium 3.9 mmol/L (3.5-5.1); Sodium Level 138 mmol/L (136-145)
--- NOTE | 2023-02-27 16:22 | EX.ED.DYSGE1 ---
HPI <MARBELLA Porter - Last Filed: 02/27/23 16:33> History of Present Illness Chief Complaint: Hypertension Narrative Narrative: Patient is a 72-year-old female with history hyperlipidemia, hypothyroidism presents to the emergency department with 3 days of generalized lightheadedness, feeling of unsteadiness. Patient states she noticed her blood pressure has been more elevated. Today, the patient felt lightheaded, her neighbor came over who is a nurse and took 3 blood pressure readings every hour. They were ranging anywhere from 175 systolic to 160 systolic. Patient denies any chest pain or shortness of breath. Patient is currently not on any blood pressure medicines. [facility] <MARBELLA Porter - Last Filed: 02/27/23 16:33> [facility] Medical History (Updated 02/27/23 @ 16:33 by MARBELLA Porter) Hypertension Home Medications aspirin 81 mg chewable tablet 81 mg PO DAILY@0800 heart health 01/07/18 [History Last Taken 12/17/19] levothyroxine 75 mcg tablet 75 mcg PO DAILY thyroid 01/07/18 [History Last Taken 12/17/19] atorvastatin 80 mg tablet 80 mg PO QHS #30 tabs 12/18/19 [Rx Last Taken Unknown] Allergy/AdvReac Type Severity Reaction Status Date / Time Sulfa (Sulfonamide Allergy Unknown Verified 02/27/23 15:15 Antibiotics) Social History Smoking Status: Never smoker ROS <MARBELLA Porter - Last Filed: 02/27/23 16:33> ROS ED ROS Narrative Constitutional: Negative for fever, chills, weight loss, weakness Eyes: Negative for vision loss, vision change, double vision ENT: Negative for any sore throat, ear pain, congestion Cardiovascular: Negative for any chest pain, tightness, palpitations. Positive for elevated blood pressure Respiratory: Negative for any cough, sputum production, hemoptysis, dyspnea, dyspnea on exertion, orthopnea Gastrointestinal: Negative for any abdominal pain, nausea, vomiting, diarrhea, constipation, blood in stool, blood in vomit : Negative for any urinary frequency, dysuria, retention, blood in urine Muscle skeletal: Negative for any muscle joint pain, stiffness, myalgias, arthralgias, neck pain, back pain Neurological: Negative for any headache, syncope, numbness or tingling, dizziness. Positive for feeling of lightheadedness Skin: Negative for any rashes, lumps, itching, abrasions, lacerations Psychiatric: Negative for any depression, anxiety, stress, suicidal ideation, homicidal ideation Hematologic: Negative for any easy bruising, excessive bruising, easy bleeding Allergies: Negative for any eczema, hives, rash EXAM <MARBELLA Porter - Last Filed: 02/27/23 16:33> Physical Exam Narrative Exam Narrative: Vital signs reviewed. Blood pressure is 154/84 on my initial evaluation, patient is in no distress HEET: Head normocephalic atraumatic, TMs clear bilaterally. Posterior pharynx is clear, moist mucous membranes. Nares clear bilaterally. Neck: Supple with no lymphadenopathy or tenderness. No signs of meningismus, negative jolt sign. Cardiac: Regular rate and rhythm no murmurs gallops or rubs, equal peripheral pulses bilaterally. Respiratory: Lungs clear to auscultation bilaterally. No chest tenderness. Abdomen: Soft, nontender, nondistended. No abdominal bruit or pulsatile masses. No hepatosplenomegaly Extremities: No peripheral edema, no signs of gross trauma or deformity. Active full range of motion of all extremities. Neuro: Cranial nerves II through XII intact, no focal neurological deficits. NIH stroke scale 0. Normal ambulation, negative Romberg sign. Negative for any ataxia Skin: Clean dry and intact with no rash, purpura, petechiae, vesicles or pustules. Backs/flank: No CVA tenderness, no midline spinal tenderness, no deformity. Psych: Normal mood and affect. No SI, HI or acute psychosis. Const Vital Signs: 02/27/23 15:16 02/27/23 15:13 02/27/23 15:13 Temperature 97.7 F L Temperature Source Temporal Pulse Rate 80 Respiratory Rate 18 Respiratory Effort Normal Non-Labored Respiratory Pattern Normal Blood Pressure 165/86 H 165/84 H Blood Pressure Mean 112 111 Pulse Ox 98 Oxygen Delivery Method Room Air 02/27/23 16:33 Temperature Temperature Source Pulse Rate 64 Respiratory Rate 18 Respiratory Effort Respiratory Pattern Blood Pressure 152/67 H Blood Pressure Mean 95 Pulse Ox 98 Oxygen Delivery Method Room Air <Dr. Francis Feliciano MD - Last Filed: 02/27/23 16:35> Physical Exam Const Vital Signs: 02/27/23 15:16 02/27/23 15:13 02/27/23 15:13 Temperature 97.7 F L Temperature Source Temporal Pulse Rate 80 Respiratory Rate 18 Respiratory Effort Normal Non-Labored Respiratory Pattern Normal Blood Pressure 165/86 H 165/84 H Blood Pressure Mean 112 111 Pulse Ox 98 Oxygen Delivery Method Room Air 02/27/23 16:33 Temperature Temperature Source Pulse Rate 64 Respiratory Rate 18 Respiratory Effort Respiratory Pattern Blood Pressure 152/67 H Blood Pressure Mean 95 Pulse Ox 98 Oxygen Delivery Method Room Air [facility] <MARBELLA Porter - Last Filed: 02/27/23 16:33> [facility] Lab Data Labs: Laboratory Results - last 24 hr 02/27/23 15:30 WBC 7.1 RBC 5.08 Hgb 14.8 Hct 44.5 MCV 87.6 MCH 29.1 MCHC 33.3 RDW Std Deviation 38.3 RDW Coeff of Cora 11.9 Plt Count 224 MPV 12.4 H Immature Gran % (Auto) 0.100 Neut % (Auto) 67.1 Lymph % (Auto) 23.5 Garza % (Auto) 7.2 Eos % (Auto) 1.5 Baso % (Auto) 0.6 Absolute Neuts (auto) 4.8 Absolute Lymphs (auto) 1.67 Nucleated RBC % 0 Sodium 138 Potassium 3.9 Chloride 103 Carbon Dioxide 28.0 Anion Gap 7 BUN 16 Creatinine 0.72 Estim Creat Clear Calc 40.81 Est GFR (MDRD) Af Amer 103 Est GFR (MDRD) Non-Af 85 BUN/Creatinine Ratio 22.3 H Glucose 102 Calcium 9.9 Treatment and Re-Evaluation :: Patient appears generally well, patient appears nontoxic, vital signs are stable. Presents to the emergency department with complaints of lightheadedness, elevated blood pressure. She denies any chest pain or shortness of breath. EKG was unremarkable. Patient's laboratory values showed a normal CBC, patient's chemistries were unremarkable. At this time, there is no evidence of any ACS, NE. Patient's blood pressure still remains in the 150 systolic. We spoke with the patient at length, I believe the patient can follow-up outpatient. Would not place the patient on a new medicine today. Patient will log her blood pressures twice a day for 5 days, follow-up with Dr. Salter. All questions answered, she was given strict return precaution. Patient stable for discharge. <Dr. Francis Feliciano MD - Last Filed: 02/27/23 16:35> [facility] MDM Narrative Medical decision making narrative: I have personally performed a face to face assessment of the patient and have reviewed the NANETTE Note. I performed a substantive portion of the visit including all aspects of the following. My goldman findings include: History is 72-year-old female elevated blood pressure. No chest pain. No significant headache. Currently not on any blood pressure medications. Denies recent illness. Exam is [32-year-old female vital signs stable initial blood pressure 165/74. Does not look ill or in any distress. H EENT exam unremarkable. Lungs clear. Heart regular rhythm. Abdomen soft nontender. Moving all 4 extremities. Neurologic exam normal. NIH is 0.] Medical Decision Making [elevated blood pressure screening labs including CBC and chemistries normal. Normal BUN and creatinine. EKG normal. Patient's blood pressure currently is 152/67. I discussed with the patient options she will monitor blood pressures twice daily for the next week follow-up with primary care physician decide if she needs to be started on blood pressure medication.] Other additions or changes: [None] History & Record Review Discussion w/independent historian: Patient and Family Lab Data Attestation: I reviewed the patient's lab results. Lab results narrative: CBC normal. BMP normal. BUN and creatinine is 16 and 0.7. Glucose 112. Labs: Laboratory Results - last 24 hr 02/27/23 15:30 WBC 7.1 RBC 5.08 Hgb 14.8 Hct 44.5 MCV 87.6 MCH 29.1 MCHC 33.3 RDW Std Deviation 38.3 RDW Coeff of Cora 11.9 Plt Count 224 MPV 12.4 H Immature Gran % (Auto) 0.100 Neut % (Auto) 67.1 Lymph % (Auto) 23.5 Garza % (Auto) 7.2 Eos % (Auto) 1.5 Baso % (Auto) 0.6 Absolute Neuts (auto) 4.8 Absolute Lymphs (auto) 1.67 Nucleated RBC % 0 Sodium 138 Potassium 3.9 Chloride 103 Carbon Dioxide 28.0 Anion Gap 7 BUN 16 Creatinine 0.72 Estim Creat Clear Calc 40.81 Est GFR (MDRD) Af Amer 103 Est GFR (MDRD) Non-Af 85 BUN/Creatinine Ratio 22.3 H Glucose 102 Calcium 9.9 Discharge Plan Triage Chief Complaint: Hypertension ED Midlevel Provider: Joe Mcmillan ED Provider: Francis Feliciano Dx/Rx/DC Orders Clinical Impression: Hypertension Instructions: Controlling High Blood Pressure, ED High Blood Pressure Hypertension Prescriptions: No Action levothyroxine 75 MCG tablet 75 mcg PO DAILY aspirin 81 MG tablet,chewable 81 mg PO DAILY@0800 atorvastatin 80 MG tablet 80 mg PO QHS Qty: 30 0RF Primary Care Provider: Dillon Salter Referrals: Dillon Salter MD [Primary Care Provider] - Activity Restrictions/Additional Instructions: Check your blood pressures twice a day for the next 5 days follow-up with Dr. Salter Disposition Disposition: Home, Self Care
[2023-02-27 16:33] VITALS: BP 152/67; PULSE 64; RESP 18; O2SAT 98
[2023-02-27 16:37] VITALS: PULSE 65; RESP 16; O2SAT 98
== END 2023-02-27 16:38 | disposition home or self-care (01) ==
PROVIDERS: Nurse Practitioner; Emergency Provider Emergency Medicine; PCP Family Medicine; Visit Provider Emergency Medicine
DX: I10 Essential (primary) hypertension (principal); E03.9 Hypothyroidism, unspecified; E78.5 Hyperlipidemia, unspecified; Z79.899 Other long term (current) drug therapy; Z79.82 Long term (current) use of aspirin
CPT/HCPCS: 80048; 85025; 93005; 99283; A4216

== ENCOUNTER → 2023-05-05 | Outpatient (CLI) | payer MEDICARE, SELFPAY ==
--- NOTE | 2023-05-05 08:06 | MRI_ITS ---
EXAM: MR HEAD WITHOUT INTRAVENOUS CONTRAST CLINICAL INDICATION: TIA. Diplopia. Lightheadedness. TECHNIQUE: Multiplanar and multisequence MR images of the brain were obtained without intravenous contrast. COMPARISON: MRI brain without contrast 12/18/2019. CTA head and neck with contrast 12/17/2019. FINDINGS: BRAIN AND EXTRA-AXIAL SPACES: Unremarkable. No intra- or extra-axial hemorrhage. No evidence of acute infarct. No intracranial mass or mass effect. Small T2 FLAIR hyperintensity in the subcortical white matter of the left angular gyrus without mass effect is nonspecific gliosis or small old chronic ischemic change. This is unchanged normal remaining white matter of the cerebral hemispheres. Posterior fossa structures are unremarkable. Ventricles are appropriate for age. No hydrocephalus. Basal cisterns are patent. SELLA: Unremarkable. Normal sella turcica, pituitary gland, infundibular stalk, optic chiasm and hypothalamus. AUDITORY SYSTEM: Unremarkable. The internal auditory canals are patent. BONES/JOINTS: Unremarkable. No discrete lytic or blastic abnormalities. SINUSES: Unremarkable as visualized. Clear. MASTOID AIR CELLS: Unremarkable as visualized. Clear. ORBITS: Unremarkable as visualized. Both globes, extraocular muscles, optic nerves and retrobulbar fat appear unremarkable. VASCULATURE: Unremarkable as visualized. Normal flow voids in the major intracranial circulation. MRI/Brain without Contrast IMPRESSION: Small subcortical white matter T2 FLAIR hyperintensity in the left angular gyrus without mass effect may represent nonspecific clear with cysts or small chronic white matter ischemic change. This was present previously and is unchanged. Otherwise negative MRI brain without contrast and unchanged since 12/18/2019. Electronically Signed: Ajay Randhawa MD at 12:02 EST ,
== END | disposition home or self-care (01) ==
PROVIDERS: PCP Family Medicine; Referring Provider Registered Nurse; Visit Provider Registered Nurse
DX: G45.9 Transient cerebral ischemic attack, unspecified (principal); H53.2 Diplopia; R42 Dizziness and giddiness
CPT/HCPCS: 70551

== ENCOUNTER 2023-11-01 18:30 | Outpatient (RCR) | payer MEDICARE, SELFPAY ==
--- NOTE | 2023-10-27 15:37 | HP.PTEVAL_ITS ---
Patient's Visit Information Visit Information Visit Information: NOHEMI JOHNSON is a 73 year old F referred to Physical Therapy by Dr. Dillon Salter MD with a diagnosis of vertigo. Date of Evaluation: 10/27/23 Physical Therapist: El Walter, DPT, OCS, CSCS Visit Plan Frequency: 1-2x /Week Duration: 4-6 Weeks Plan: 1-2x/weeek for 2-6 weeks as needed for positional treatments and vestibular treatments. Subjective Subjective: Dizzy since August. Was in [place] at the time. Intermittent dizzyness almost like on a boat. Just woke up out of the blue. Was doing a lot of hiking but never bothered her prior. Intermittent. Las tmonth has been regular. Everyday all day. Fairly constant. Today is good day. When bad head feels like it is moving. Feels unstable. Has to hold on in shower if eyes closed. Rolling R side might make head feel funny for a couple seconds. Avoids a lot of activity. says looking down causes a problem. Saw doctor and had MRI and EKG all were OK. Dr. Salter put on bench and turned her and said she has vertigo. leaving to [place] 11/07 Objective Objective: Walks slowly not moving head but safe adn I into PT. I transfers bed and chair. cervical aROM WFL rotations but hesitant to look up and down, good motion. UE AROM WFL and without pain. Strength UE 4/5 Sensation UE WNL to gross light touch. + L HD treated with Ingrid and then negative L but postiive R, treated with Ingrid. Both were slight up torsional nystagmus and 5 second L and delayed 10 sec duration on R. - L after initial ingrid. Balance/Special Test Scores Functional Gait Assessment Score: 28 % Disability: 6.6700 Dizziness Score: 36 Goals Goal 1:: abolish dizzyness 99% Goal Time Frame: 4-6 Weeks Goal 2:: - B hallpike bruno testing Goal Time Frame: 4-6 Weeks Goal 3:: Lie in bed and roll without symptoms Goal Time Frame: 4-6 Weeks Goal 4:: Back to all activities without hesitancy Goal Time Frame: 4-6 Weeks Goal 5:: 30 on FGA Goal Time Frame: 4-6 Weeks Goal 6:: 8 or less DHI Goal Time Frame: 4-6 Weeks Rehabilitation Potential Physical Therapy Diagnosis: positional changes make her dizzy and hesitant to move. Rehabilitation Potential: Good Anticipated Interventions Patient/Client Instruction: Educate patient on: Condition For the Purpose of:: To increase tolerance to activity/condition/position Comment: vestibular positional For the Purpose of:: To increase tolerance to activity/condition/position Text: Thank you for the opportunity to evaluate your patient. For Medicare and Medicare HMO plans, please review the plan of care and approve it. It will need to be FAXED BACK to us at [phone] for Medicare purposes. For Medicare only, by signing this I certify the plan of care. Please let me know if there are questions or concerns regarding this plan of care. Physician Signature: Date:
--- NOTE | 2023-11-25 06:42 | HP.PTDCSUM_ITS ---
Discharge Summary D/C summary: It has been my pleasure to treat NOHEMI JOHNSON referred by Dr. Dillon Salter MD, with the diagnosis of vertigo for a total of 2 visit(s). Discharge Date: Please see the following information for a summary of their discharge status. Subjective Subjective: Been doing OK at home. Did 8 reps BD daily. [place] upon leaving last time. Was mulching and weeding and put head down. No rocking feeling No spinning lately. No problem with exercises. Sleeping normal without any problems. Overall Improvement % Improvement: 95 Objective Objective/Function: - B hallpike bruno, - roll test. Mild aura up form HD and standing up after sitting for a quick second but more orthotstatic then positional. Goals Goal 1:: abolish dizzyness 99% Goal 2:: - B hallpike bruno testing Goal 3:: Lie in bed and roll without symptoms Goal 4:: Back to all activities without hesitancy Goal 5:: 30 on FGA Goal 6:: 8 or less DHI Plan Plan: Pt cancelled 3 week f/u stating no reason to attend after her vacation. Will discontinue at this time(was 955 better before the last 3 weeks) D/C Information d/c sentence: If there are questions or concerns regarding this patient's physical therapy, please feel free to call me at [phone]. Thank you for the referral of this patient. Sincerely, El Walter, DPT, OCS, CSCS Balance/Gait/Functional tests Balance/Special Test Scores Functional Gait Assessment Score: 30 % Disability: 0 Dizziness Score: 36 Improvement % Improvement: 95
== END 2023-11-01 19:00 | disposition home or self-care (01) ==
LOC: PT 18:30
PROVIDERS: PCP Family Medicine; Referring Provider Family Medicine; Visit Provider Family Medicine
DX: R42 Dizziness and giddiness (principal)
CPT/HCPCS: 97161; 97530

== ENCOUNTER → 2024-05-17 | Outpatient (CLI) | payer MEDICARE, SELFPAY ==
--- NOTE | 2024-05-17 | COLBX_PTH ---
PATIENT: NOHEMI JOHNSON [id number] AGE/SX: 73/F ROOM: RE05/17/[address]: Dr. Maurice Jackson MD : 1950 BED: DIS: 05/17/2024 SPEC #: [id number] RECD: 05/17/24 15:35 STATUS: FRANNIE REQ #: [id number] ROLA: 05/17/24 00:[address]: Maurice Jackson DEPT: SURGICAL PATHOLOGY RECD BY: Janette Fofana ENTERED: 05/18/24 09:35 SP TYPE: COLON BX OTHR DR: Dr. Dillon Salter MD Tissues: Transverse colon Procedures: Surgery Specimen Level IV HEADER OPERATION: Colonoscopy PRE-OP DIAGNOSIS: Screening TISSUE SUBMITTED: Transverse colon polyp biopsy MICROSCOPIC DIAGNOSIS Transverse colon polyp, biopsy: Tubular adenoma. 05/21/2024 MICROSCOPIC DESCRIPTION Slides are reviewed. GROSS DESCRIPTION Received in fixative is one container labeled with the patient's name and designated Transverse colon polyp. The specimen consists of a 3.0 to 4.0mm in diameter round polypoid lara tissue fragment submitted in one cassette. 05/18/2024 TC:1 CPT:75932
== END | disposition home or self-care (01) ==
PROVIDERS: PCP Family Medicine; Referring Provider Surgery; Visit Provider Surgery
DX: Z12.11 Encounter for screening for malignant neoplasm of colon (principal); D12.3 Benign neoplasm of transverse colon
CPT/HCPCS: 88305